=== PATIENT | male | born 1965 | race Two or more races ===

== ENCOUNTER 2016-04-28 20:33 | Emergency (ER) | payer MEDICAID, OTHER ==
[~2016-04-28] VITALS: Ht 167.6 cm; Wt 63.5 kg
[2016-04-28 20:41] VITALS: BP 134/79
[2016-04-28] MEDS ORDERED: LORazepam 0.5 MG TAB PO ONE (23:30)
== END 2016-04-28 23:50 | disposition home or self-care (01) ==
LOC: ER 20:44
DX: F41.9 Anxiety disorder, unspecified (principal)

== ENCOUNTER 2016-07-03 00:44 | Emergency (ER) | payer OTHER ==
[~2016-07-03] VITALS: Ht 167.6 cm; Wt 63.5 kg
[2016-07-03 01:35] LABS: Basophils # (auto) 0 uL; Basophils % (auto) 0.2 % (0.0-2.0); Eosinophils # (auto) 0.3 uL; Eosinophils % (auto) 1.5 % (0.0-7.0); Hematocrit 53.3 % (41.0-53.0); Hemoglobin 17.9 g/dL (13.5-17.5); Lymphocytes # (auto) 3.6 uL; Lymphocytes % (auto) 20.7 % (10.0-50.0); Mean Corpuscular Hgb Conc. 33.5 g/dL (32.0-36.0); Mean Corpuscular Volume 95.7 fL (80.0-100.0); Mean Platelet Volume 7.8 fL (7.4-10.4); Monocytes # (auto) 0.7 uL; Monocytes % (auto) 4.1 % (0.0-12.0); Neutrophils # (auto) 12.8 uL; Neutrophils % (auto) 73.5 % (37.0-80.0); Platelet Count (auto) 297 10^3/uL (140-450); Red Cell Distribution Width 14.3 % (11.6-16.0); White Blood Cell 17.5 10^3/uL (4.4-10.8)
[2016-07-03 02:02] LABS: Albumin 3.7 g/dL (3.4-5.0); Anion Gap 8 (5-15); Aspartate Aminotransferase 31 U/L (15-37); Blood Urea Nitrogen 8 mg/dL (7-18); Calcium 8.5 mg/dL (8.5-10.1); Carbon Dioxide 31 mmol/L (21-32); Chloride 100 mmol/L (98-107); GFR African American 116 mL/min; GFR Non-African American 96 mL/min; Glucose 76 mg/dL (74-106); Potassium 3.8 mmol/L (3.5-5.1); Sodium 139 mmol/L (136-145)
[2016-07-03 02:07] LABS: Alkaline Phosphatase 108 U/L (45-117); Bilirubin, Total 0.5 mg/dL (0.2-1.0); Total Protein 7.5 g/dL (6.4-8.2)
[2016-07-03 04:35] VITALS: BP 123/90
[2016-07-03 04:53] LABS: Urine Bilirubin Negative (Negative); Urine Blood Negative /uL (Negative); Urine Color Yellow (Yellow); Urine Glucose Normal (Normal); Urine Ketone Negative (Negative); Urine Mucus FEW (None Seen); Urine Nitrite Negative (Negative); Urine RBC <1 /hpf (0 - 3); Urine pH 5.5 (5.0-8.0)
== END 2016-07-03 06:01 | disposition left against medical advice (07) ==
LOC: ER 00:44
DX: F41.9 Anxiety disorder, unspecified (principal); R07.9 Chest pain, unspecified; Z53.21 Procedure and treatment not carried out due to patient leaving prior to being seen by health care provider
CPT/HCPCS: 36415; 80053; 81001; 84484; 85025